=== PATIENT | female | born 1960 | race Caucasian/White ===

== ENCOUNTER 2017-09-26 09:36 | Outpatient (CLI) | payer OTHER | END 2017-09-26 09:37 | disposition home or self-care (01) | LOC: BICMAMMO 09:36 | PROVIDERS: ATTEND Family Medicine | DX: Z12.31 Encounter for screening mammogram for malignant neoplasm of breast (principal) | CPT/HCPCS: 77067 ==

== ENCOUNTER 2018-07-21 13:35 | Outpatient (CLI) | payer OTHER | END 2018-07-21 13:36 | disposition home or self-care (01) | LOC: CTENTCT 13:35 | PROVIDERS: ATTEND Otolaryngology Plastic Surgery within the Head & Neck | DX: J32.9 Chronic sinusitis, unspecified (principal) | CPT/HCPCS: 70486 ==

== ENCOUNTER 2018-10-01 09:43 | Day surgery (SDC) | payer OTHER ==
[2018-09-30 14:12] VITALS: BMI 30.9
--- NOTE | 2018-10-01 10:19 | ULT ---
ABDOMINAL ULTRASOUND: HISTORY: Abdominal pain. TECHNIQUE: Multiple longitudinal and transverse images of the abdomen are obtained using a MultiHertz curvilinea r transducer. Real-time and color-flow images are obtained to evaluate the abdomen. FINDINGS: Images demonstrate fibrofatty changes seen in the liver. The spleen is unremarkable. The gallbladder is unremarkable. No evidence of gallstones seen. No evidence of intrahepatic biliary dilatation is seen. The common bile duct is of normal size, measuring 4.9 mm. Both kidneys are visualized and are unremarkable. The right kidney measures 10.5 cm from pole to nehemiah e. The left kidney is smaller, measuring 7.1 cm from pole to pole. Abdominal aorta and inferior vena cava are unremarkable. Normal hepatopetal flow seen in the portal system. IMPRESSION: Small left kidney. Otherwise unremarkable abdominal ultrasound. Transcribed Date/Time: 10/01/2018 10:55 AM
--- NOTE | 2018-10-02 15:26 | OP ---
DATE OF PROCEDURE: 10/01/2018 PROCEDURE PERFORMED: Esophagogastroduodenoscopy with biopsy. PREOPERATIVE DIAGNOSES: Abdominal pain, persistent acid reflux. POSTOPERATIVE DIAGNOSES: 1. Normal esophageal mucosa with no esophagitis or erosions seen. 2. Multiple gastric polyps of varying sizes throughout the stomach. 3. Normal duodenum. DESCRIPTION OF PROCEDURE: The patient was placed on her left lateral position and was given sedation by Anesthesia Department. A Pentax video gastroscope under direct vision was passed down the oropharynx, past the GE junction into the stomach and subsequently into the descending duodenum. Although, the patient complained of severe acid reflux, persistent, on endoscopy, the mucosa appeared normal . In the GE junction, no pathology seen. Retroflexion failed to show any pathology in fundus or cardia. The patient had numerous gastric polyps of varying sizes. Most of the polyps appears to be hyperplastic at the endoscopic appearance. Multiple biopsies were obtained for large rectal polyp. The polyps were too many to be removed. In the incisura angularis, no pathology seen. In the duodenal bulb and descending duodenum, no pathology seen. The stomach was decompressed and the scope was removed. DISCHARGE PLAN: This is a 58-year-old female, referred to me by Dr. Halley Gold for evaluation of abdominal pain and the patient has acid reflux. The patient had abdominal sonogram in the ER and sonogram shows no pathology. The EGD again showed no esophagitis, but showed multiple gastric polyps. Biopsies were obtained of gastric polyps. The stomach was decompressed and scope removed. DISCHARGE PLAN: This is a 58-year-old female who came in for EGD because of abdominal pain, chronic acid reflux symptoms. The EGD showed multiple gastric polyps and no other pathologies seen. DISCHARGE RECOMMENDATIONS: 1. Continue medications as before. 2. Come back to clinic in 2 weeks. Job ID: [id number] [facility]
--- NOTE | 2018-10-03 21:15 | EKG ---
Test Reason : STAT Blood Pressure : / mmHG Vent. Rate : 068 BPM Atrial Rate : 068 BPM P-R Int : 144 ms QRS Dur : 092 ms QT Int : 410 ms P-R-T Axes : 034 021 001 degrees QTc Int : 435 ms Sinus rhythm with Fusion complexes Incomplete right bundle branch block Cannot rule out Anterior infarct , age undetermined Abnormal ECG No previous ECGs available Confirmed by Fabiola KING ([id number]) on 10/03/2018 9:15:25 PM Referred By: Confirmed By:Fabiola KING
== END 2018-10-01 14:11 | disposition home or self-care (01) ==
LOC: SDC 09:43
PROVIDERS: ATTEND Internal Medicine Gastroenterology
PROC: 0DB68ZX Excision of Stomach, Via Natural or Artificial Opening Endoscopic, Diagnostic (ICD-10-PCS; principal; 2018-10-01)
DX: K31.7 Polyp of stomach and duodenum (principal); K21.9 Gastro-esophageal reflux disease without esophagitis; I45.10 Unspecified right bundle-branch block; I10 Essential (primary) hypertension; E78.5 Hyperlipidemia, unspecified; E03.9 Hypothyroidism, unspecified; F41.9 Anxiety disorder, unspecified; Z88.0 Allergy status to penicillin; Z88.6 Allergy status to analgesic agent; Z88.2 Allergy status to sulfonamides; Z88.1 Allergy status to other antibiotic agents; Z88.8 Allergy status to other drugs, medicaments and biological substances; Z79.899 Other long term (current) drug therapy
CPT/HCPCS: 76700; 88305; 88312; 93005; 93010

== ENCOUNTER 2019-04-08 10:30 | Outpatient (CLI) | payer OTHER ==
--- NOTE | 2019-04-08 11:21 | MMO ---
Bilateral MAMMO Bilat Screen [facility]. CLINICAL HISTORY: Patient is 58 years old and is seen for screening. The patient has no family history of breast cancer. The patient has no personal history of cancer. VIEWS: The views performed were: bilateral craniocaudal with tomosynthesis and bilateral mediolateral oblique with tomosynthesis. FILMS COMPARED: The present examination has been compared to prior imaging studies performed at This study has been interpreted with the assistance of computer-aided detection. MAMMOGRAM FINDINGS: There are scattered fibroglandular densities. There are stable benign appearing calcifications seen in both breasts. There are no suspicious masses, suspicious calcifications, or new areas of architectural distortion. IMPRESSION: THERE IS NO MAMMOGRAPHIC EVIDENCE OF MALIGNANCY. A ROUTINE FOLLOW-UP MAMMOGRAM IN 1 YEAR IS RECOMMENDED. THE RESULTS OF THIS EXAM WERE SENT TO THE PATIENT. ACR BI-RADS Category 2 - Benign finding MAMMOGRAPHY NOTE: 1. A negative mammogram report should not delay a biopsy if a dominant of clinically suspicious mass is present. 2. Approximately 10% to 15% of breast cancers are not detected by mammography. 3. Adenosis and dense breasts may obscure an underlying neoplasm. Reported by: PRAFUL SHERWOOD MD Electonically Signed: [id number]
== END 2019-04-08 10:31 | disposition home or self-care (01) ==
LOC: BICMAMMO 10:30
PROVIDERS: ATTEND Family Medicine
DX: Z12.31 Encounter for screening mammogram for malignant neoplasm of breast (principal)
CPT/HCPCS: 77063; 77067

== ENCOUNTER 2021-01-02 11:10 | Outpatient (CLI) | payer OTHER | END 2021-01-02 11:11 | disposition home or self-care (01) | LOC: BICMAMMO 11:10 | PROVIDERS: ATTEND Family Medicine | DX: Z12.31 Encounter for screening mammogram for malignant neoplasm of breast (principal); Z80.3 Family history of malignant neoplasm of breast | CPT/HCPCS: 77063; 77067 ==